=== PATIENT | female | born 1940 | race Caucasian/White ===

== ENCOUNTER 2017-07-22 13:14 | Emergency (ER) | payer MEDICARE ==
[2017-07-22] VITALS (7 sets, daily range): BP systolic 88–105; BP diastolic 40–59; PULSE 85–89; RESP 18–22; TEMP 98.6; O2SAT 94–98
[~2017-07-22] VITALS: Ht 175.3 cm; Wt 62.5 kg
[~2017-07-22 13:14] MED LIST: ALEN70 PO; ALLBC PO; ALPR-138 PO; ASPI325T PO; CALC250T PO; DYAZ37.52 PO; EZET10 PO; L-THYROXINE PO; LORT5TAB PO; LOSA25TA31 PO; MAGN400T PO; METO25 PO; OMEP20CA5 PO; POTA-243 PO; REME30TA PO; TAB-TAB PO; VIVELLE DOT PO; WELC625T2 PO
[2017-07-22] MEDS: RESP: ALBUTEROL 2.5 MG/IPRATROPIUM 0.5 MG NEB (SCH) INH ×2 (13:41→13:42)
[2017-07-22] MEDS ORDERED: SODIUM CHLORIDE 0.9% FLUSH 10 ML FLUSH IVF PRN (13:45)
[2017-07-22] MEDS ORDERED: methylPREDNISolone SOD SUCC 125 MG/2 ML VIAL IV PUSH ONE (13:45)
--- NOTE | 2017-07-22 13:50 | PD ---
HPI . Dyspnea Chief Complaint: Respiratory Symptoms Time Seen by Provider: 13:28 Travel History International Travel<30 days: No Contact w/Intl Traveler<30days: No Traveled to known affect area: No History of Present Illness HPI Patient presents with chief complaint of dyspnea. Onset was 4 weeks ago. Her shortness of breath is associated with cough, nasal congestion and fatigue. She has had a course of steroids with no relief of her symptoms. Symptoms are mild. PFSH Past Medical History Arthritis: Yes Asthma: No Autoimmune Disease: No Blood Disorders: No Heart Rhythm Problems: No Cancer: No Cardiovascular Problems: Yes (MVP ANEURYSM) High Cholesterol: Yes Chest Pain: No Congestive Heart Failure: No COPD: No Diabetes: No Diminished Hearing: Yes ([place] in lt ear.) Endocrine: Yes (HAD CYSTS ON THYROID) GERD: Yes Genitourinary: Yes Headaches: Yes Hiatal Hernia: Yes Hypertension: Yes Musculoskeletal: Yes Neurologic: Yes Psychiatric: No Respiratory: Yes Sleep Apnea: No Thyroid Disease: No ?: Not Tubal Ligation: Yes Past Surgical History Abdominal Surgery: Yes (UMBILICAL HERNIA REPAIR) AICD: No Cardiac Surgery: No Ear Surgery: No Endocrine Surgery: No Eye Surgery: No Genitourinary Surgery: No Gynecologic Surgery: Yes (posterior repair rectoseal.) Hysterectomy: Yes Oral Surgery: No Pacemaker: No Thoracic Surgery: No Other Surgery: Yes (umbilical hernia repair.) Social History Alcohol Use: No Tobacco Use: No Substance Use: No Allergies-Medications (Allergen,Severity, Reaction): Coded Allergies: Sulfa (Sulfonamide Antibiotics) (Unverified Allergy, Severe, Rash, 07/22/17) codeine (Unverified Allergy, Severe, 07/22/17) penicillin V (Unverified Allergy, Severe, Rash, 07/22/17) Uncoded Allergies: sporonax (Allergy, Severe, swelling of head, 04/02/07) Reported Meds & Prescriptions Reported Meds & Active Scripts Active Reported Probiotic (Lactobacillus Combination No.4) 3 Billion Cell Capsule Unknown Dose PO Super B Complex (Vitamin B Complex Vit C No.4) 150 Mg Tablet Unknown Dose PO Aspirin 325 Mg Tab 325 Mg PO DAILY Melatonin 5 Mg Tab 5 Mg PO HS Calcium Citrate-Vitamin D 315-200 Mg-Unit Tab Unknown Dose PO DAILY Sucralfate 1 Gram Tab 1 Gm PO QID on empty stomach Celebrex (Celecoxib) 200 Mg Cap 200 Mg PO DAILY Miralax Powder (Polyethylene Glycol 3350 Powder) 17 Gm Powd Unknown Dose PO DAILY Mix and dissolve one measuring cap-ful (17 grams) in water or juice. Estradiol 1 Mg Tab 1 Mg PO DAILY Omeprazole 20 Mg Tab 20 Mg PO BID Levothyroxine (Levothyroxine Sodium) 50 Mcg Tab 50 Mcg PO DAILY Alprazolam 0.25 Mg Tab 0.25 Mg PO TID PRN Triamterene-Hydrochlorothiazide 75-50 Mg Tab 1 Tab PO DAILY Lisinopril 5 Mg Tab 5 Mg PO DAILY Venlafaxine ER 24 HR (Venlafaxine HCl) 37.5 Mg Cap 37.5 Mg PO DAILY Simvastatin 40 Mg Tab 40 Mg PO HS Tramadol (Tramadol HCl) 50 Mg Tab 50 Mg PO BID PRN Review of Systems Except as stated in HPI: all other systems reviewed are Neg General / Constitutional: Positive: Other (Fatigue), No: Fever, Chills HENT: Positive: Congestion Respiratory: Positive: Cough, Shortness of Breath Physical Exam Narrative GENERAL: Awake and alert and in no acute distress. SKIN: warm/dry. HEAD: Normocephalic. Atraumatic. EYES: Pupils equal and round. Extraocular movements are intact. ENT: Mucous membranes pink and moist. NECK: Supple. Full range of motion without pain.. CARDIOVASCULAR: Regular rate and rhythm. Heart sounds are normal. RESPIRATORY: No accessory muscle use. Coarse bibasilar expiratory wheezes. Breath sounds equal bilaterally. MUSCULOSKELETAL: No obvious deformities. Normal muscle tone. NEUROLOGICAL: Awake and alert. No obvious cranial nerve deficits. Motor grossly within normal limits. Normal speech. PSYCHIATRIC: Appropriate mood and affect; insight and judgment normal. Data Data Last Documented VS Vital Signs Date Time Temp Pulse Resp B/P (MAP) Pulse Ox O2 Delivery O2 Flow Rate FiO2 07/22/17 15:00 88 20 94/52 (66) 96 Room Air 07/22/17 13:18 98.6 Orders Orders Complete Blood Count With Diff (07/22/17 13:32) Basic Metabolic Panel (Bmp) (07/22/17 13:32) B-Type Natriuretic Peptide (07/22/17 13:32) Troponin I (07/22/17 13:32) Iv Access Insert/Monitor (07/22/17 13:32) Ecg Monitoring (07/22/17 13:32) Oximetry (07/22/17 13:32) Chest, Pa & Lat (07/22/17 13:32) Sodium Chloride 0.9% Flush (Ns Flush) (07/22/17 13:45) Methylprednisolone So Succ Inj (Solumedr (07/22/17 13:45) Albuterol-Ipratropium Neb (Duoneb Neb) (07/22/17 13:45) Sodium Chlor 0.9% 1000 Ml Inj (Ns 1000 M (07/22/17 15:00) Electrocardiogram (07/22/17 13:31) Resp Request For Service (07/22/17 ) Labs Laboratory Tests Test 07/22/17 13:50 White Blood Count 10.0 TH/MM3 Red Blood Count 3.69 MIL/MM3 Hemoglobin 12.0 GM/DL Hematocrit 34.1 % Mean Corpuscular Volume 92.5 FL Mean Corpuscular Hemoglobin 32.5 PG Mean Corpuscular Hemoglobin Concent 35.1 % Red Cell Distribution Width 13.3 % Platelet Count 437 TH/MM3 Mean Platelet Volume 8.1 FL Neutrophils (%) (Auto) 73.8 % Lymphocytes (%) (Auto) 19.2 % Monocytes (%) (Auto) 4.1 % Eosinophils (%) (Auto) 2.2 % Basophils (%) (Auto) 0.7 % Neutrophils # (Auto) 7.4 TH/MM3 Lymphocytes # (Auto) 1.9 TH/MM3 Monocytes # (Auto) 0.4 TH/MM3 Eosinophils # (Auto) 0.2 TH/MM3 Basophils # (Auto) 0.1 TH/MM3 CBC Comment DIFF FINAL Differential Comment Blood Urea Nitrogen 24 MG/DL Creatinine 1.00 MG/DL Random Glucose 114 MG/DL Calcium Level 8.3 MG/DL Sodium Level 138 MEQ/L Potassium Level 4.1 MEQ/L Chloride Level 105 MEQ/L Carbon Dioxide Level 24.7 MEQ/L Anion Gap 8 MEQ/L Estimat Glomerular Filtration Rate 54 ML/MIN Troponin I LESS THAN 0.02 NG/ML B-Type Natriuretic Peptide 27 PG/ML MDM Medical Decision Making Medical Screen Exam Complete: Yes Emergency Medical Condition: Yes Medical Record Reviewed: Yes (PMH includes HTNk HL, TIA, hypothyroidism, GERD, PUD and tobacco abuse) Interpretation(s) EKG shows a lot of artifact. Normal sinus rhythm. No acute ischemic changes. Differential Diagnosis Differential diagnosis of dyspnea includes but is not limited to congestive heart failure, pneumonia, wheezing, pneumothorax, pulmonary embolism Narrative Course This patient presents with a 4 week history of dyspnea. She has some course expiratory wheezing. She will be treated with steroids and stacked nebs. The patient reports that she is better following the above treatment. Last Impressions Chest X-Ray 07/22/17 1332 Signed Impressions: CONCLUSION: No acute cardiopulmonary disease. CBC & BMP Diagram 07/22/17 13:50 Calcium Level 8.3 L Troponin less than 0.02 BNP 27 The patient's blood pressure has been a bit low. She reports that her normal systolic pressure is about 100. I will give her a liter of fluid prior to discharge. Interestingly, the patient is on 2 separate blood pressure medications. I am going to have her hold her triamterene/HCTZ until she can follow-up with her primary care doctor. The plan is to discharge her with an albuterol inhaler. Diagnosis Primary Impression: Bronchospasm Additional Impression: Dyspnea Qualified Codes: R06.00 - Dyspnea, unspecified Patient Instructions: Bronchospasm (DC), General Instructions Additional Instructions: Hold your triamterene/HCTZ until you see your doctor next week. Med/Other Pt SpecificInfo: Prescription(s) given Scripts Albuterol 18 GM Inh (Ventolin Hfa 18 GM Inh) 90 Mcg/Act Aer 2 PUFF INH Q4H Y for SHORTNESS OF BREATH, #1 INHALER 0 Refills Prov: Mandi Negro MD 07/22/17 Disposition: 01 DISCHARGE HOME Condition: Stable Mandi Negro MD Jul 22, 2017 13:50
[2017-07-22 13:53] LABS: AUTOMATED NEUTROPHIL # 7.4 TH/MM3 (1.8-7.7); BASOPHIL # 0.1 TH/MM3 (0-0.2); BASOPHIL % 0.7 % (0.0-2.0); EOSINOPHIL # 0.2 TH/MM3 (0-0.4); EOSINOPHIL % 2.2 % (0.0-4.0); HEMATOCRIT 34.1 % (35.0-46.0); LYMPH % 19.2 % (9.0-44.0); LYMPHOCYTE # 1.9 TH/MM3 (1.0-4.8); MEAN CELL VOLUME 92.5 FL (80.0-100.0); MEAN CORPUSCULAR HEMOGLOBIN 32.5 PG (27.0-34.0); MEAN CORPUSCULAR HGB CONC 35.1 % (32.0-36.0); MEAN PLATELET VOLUME 8.1 FL (7.0-11.0); MONO % 4.1 % (0.0-8.0); MONOCYTE # 0.4 TH/MM3 (0-0.9); NEUT % 73.8 % (16.0-70.0); PLATELET COUNT 437 TH/MM3 (150-450); RED BLOOD COUNT 3.69 MIL/MM3 (4.00-5.30); RED CELL DISTRIBUTION WIDTH 13.3 % (11.6-17.2)
[2017-07-22 14:02] LABS: CHLORIDE 105 MEQ/L (98-107); SODIUM (NA) 138 MEQ/L (136-145)
[2017-07-22 14:04] LABS: CALCIUM 8.3 MG/DL (8.5-10.1)
[2017-07-22 14:05] LABS: BICARBONATE 24.7 MEQ/L (21.0-32.0); BLOOD UREA NITROGEN 24 MG/DL (7-18); GLUCOSE,RANDOM 114 MG/DL (74-106)
[2017-07-22 14:08] LABS: GLOMERULAR FILTRATION RATE 54 ML/MIN (>89)
[2017-07-22 14:13] LABS: TROPONIN I LESS THAN 0.02 NG/ML (0.02-0.05)
--- NOTE | 2017-07-22 14:30 | RADRPT ---
EXAM DATE: 07/22/2017 2:24 PM EDT AGE/SEX: 76 years / Female INDICATIONS: Short of breath. CLINICAL DATA: This is the patient's initial encounter. Patient reports that signs and symptoms have been present for 3 days and indicates a pain score of 5/10. MEDICAL/SURGICAL HISTORY: None. None. COMPARISON: POI, XR CHEST PA AND LAT, 03/18/2016. . FINDINGS: PA and lateral views of the chest demonstrate the lungs to be symmetrically aerated without evidence of mass, infiltrate or effusion. The heart is normal in size. Mild tortuosity descending thoracic aor ta. Osseous structures are intact. CONCLUSION: No acute cardiopulmonary disease. Electronically signed by: Neville Gomez MD 07/22/2017 2:29 PM EDT
[2017-07-22] MEDS ORDERED: CELE200C PO (14:52)
[2017-07-22] MEDS ORDERED: MIRA3350 PO (14:52)
[2017-07-22] MEDS ORDERED: SIMV40TA PO (14:52)
[2017-07-22] MEDS ORDERED: VENL37.595 PO (14:52)
[2017-07-22] MEDS ORDERED: MELA5 PO (14:52)
[2017-07-22] MEDS ORDERED: CALC1TAB16 PO (14:52)
[2017-07-22] MEDS ORDERED: ALPR0.25 PO (14:52)
[2017-07-22] MEDS ORDERED: LEVO50TA4 PO (14:52)
[2017-07-22] MEDS ORDERED: TRAM50TA PO (14:52)
[2017-07-22] MEDS ORDERED: OMEP20TA93 PO (14:52)
[2017-07-22] MEDS ORDERED: TRIA1TAB5 PO (14:52)
[2017-07-22] MEDS ORDERED: VITA150T PO (14:52)
[2017-07-22] MEDS ORDERED: ASPI-183 PO (14:52)
[2017-07-22] MEDS ORDERED: LISI-519 PO (14:52)
[2017-07-22] MEDS ORDERED: SUCR1TAB PO (14:52)
[2017-07-22] MEDS ORDERED: ESTR1TAB PO (14:52)
[2017-07-22] MEDS ORDERED: LACT1CAP19 PO (14:52)
[2017-07-22] MEDS ORDERED: SODIUM CHLOR 0.9% 1000 ML INJ 1,000 ML IV ONE (15:00)
--- NOTE | 2017-07-22 15:17 | EKG ---
Date Performed: 07/22/2017 Time Performed: 13:31:14 PTAGE: 76 years EKG: Sinus rhythm POSSIBLE LEFT ATRIAL ENLARGEMENT MARKED LEFT AXIS DEVIATION LOW QRS VOLTAGE IN EXTREMITY LEADS ABNOR MAL ECG INTERPRETATION BASED ON A DEFAULT AGE OF 40 YEARS PREVIOUS TRACING : 05/14/2004 21.14 Since the previous tracing, no significant change not ed DOCTOR: Cy Palma Interpretating Date/Time 07/22/2017 15:15:54
[2017-07-22] MEDS ORDERED: VENTAER INH (15:33)
== END 2017-07-22 16:30 | disposition home or self-care (01) ==
LOC: PHED 13:14
DX: J98.01 Acute bronchospasm (principal); R06.00 Dyspnea, unspecified; R06.02 Shortness of breath; R05 Cough; R06.2 Wheezing; R53.83 Other fatigue; R94.31 Abnormal electrocardiogram [ECG] [EKG]; R09.81 Nasal congestion; E78.00 Pure hypercholesterolemia, unspecified; I10 Essential (primary) hypertension; K21.9 Gastro-esophageal reflux disease without esophagitis
CPT/HCPCS: 71046; 80048; 83880; 84484; 85025; 93005; 94640; 94664; 96361; 96374; 99285; J2930; J7030